=== PATIENT | male | born 1965 | race Caucasian/White ===

== ENCOUNTER → 2016-06-17 | Outpatient (CLI) | payer BC ==
[2016-06-17 16:28] LABS: ABSOLUTE BASOPHILS # (AUTO) 0.1 10^3/uL (0.0-0.2); ABSOLUTE EOSINOPHILS # (AUTO) 0.1 10^3/uL (0.0-0.6); ABSOLUTE MONOCYTES (AUTO) 0.9 10^3/uL (0.1-1.4); ABSOLUTE NEUT (AUTO) 4.5 10^3/uL (1.7-8.2); BASOPHILS % (AUTO) 0.9 % (0-2); EOSINOPHILS % (AUTO) 1.3 % (0-6); HEMATOCRIT 50.3 % (37.9-51.0); HEMOGLOBIN 16.4 g/dL (13.5-17.0); HGB HCT DIFFERENCE -1.1; LYMPHOCYTES % (AUTO) 34.8 % (13-45); MEAN CORPUSCULAR HEMOGLOBIN 26.6 pg (27.0-33.4); MEAN CORPUSCULAR HGB CONC 32.7 g/dL (32.0-36.0); MEAN CORPUSCULAR VOLUME 81 fl (80-97); MONOCYTES % (AUTO) 10.4 % (3-13); RED BLOOD COUNT 6.18 10^6/uL (4.35-5.55); RED CELL DISTRIBUTION WIDTH 16.1 % (11.5-14.0); SEGMENTED NEUTROPHILS % (AUTO) 52.6 % (42-78); WHITE BLOOD COUNT 8.5 10^3/uL (4.0-10.5)
== END ==
LOC: OD 15:31
PROVIDERS: ATTEND Urology
DX: E29.1 Testicular hypofunction (principal); N52.8 Other male erectile dysfunction; N52.9 Male erectile dysfunction, unspecified; N40.1 Benign prostatic hyperplasia with lower urinary tract symptoms
CPT/HCPCS: 36415; 85025

== ENCOUNTER → 2016-07-29 | Outpatient (CLI) | payer BC ==
[2016-07-29 10:49] LABS: ABSOLUTE BASOPHILS # (AUTO) 0.1 10^3/uL (0.0-0.2); ABSOLUTE EOSINOPHILS # (AUTO) 0.2 10^3/uL (0.0-0.6); ABSOLUTE LYMPHOCYTES (AUTO) 2.3 10^3/uL (0.5-4.7); ABSOLUTE MONOCYTES (AUTO) 0.8 10^3/uL (0.1-1.4); ABSOLUTE NEUT (AUTO) 5.7 10^3/uL (1.7-8.2); BASOPHILS % (AUTO) 0.9 % (0-2); EOSINOPHILS % (AUTO) 1.7 % (0-6); HEMOGLOBIN 16.3 g/dL (13.5-17.0); HGB HCT DIFFERENCE -0.1; LYMPHOCYTES % (AUTO) 25.5 % (13-45); MEAN CORPUSCULAR HEMOGLOBIN 27.1 pg (27.0-33.4); MEAN CORPUSCULAR HGB CONC 33.3 g/dL (32.0-36.0); MEAN CORPUSCULAR VOLUME 81 fl (80-97); MONOCYTES % (AUTO) 9.3 % (3-13); RED BLOOD COUNT 6.02 10^6/uL (4.35-5.55); RED CELL DISTRIBUTION WIDTH 15.7 % (11.5-14.0); SEGMENTED NEUTROPHILS % (AUTO) 62.6 % (42-78); WHITE BLOOD COUNT 9.1 10^3/uL (4.0-10.5)
[2016-07-29 11:12] LABS: ALANINE AMINOTRANSFERASE 39 U/L (21-72); ALBUMIN 4.3 g/dL (3.5-5.0); ALKALINE PHOSPHATASE 71 U/L (38-126); ANION GAP 15 (5-19); ASPARTATE AMINO TRANSFERASE 22 U/L (17-59); BILIRUBIN,DIRECT 0.3 mg/dL (0.0-0.4); BILIRUBIN,TOTAL 0.9 mg/dL (0.2-1.3); BLOOD UREA NITROGEN 16 mg/dL (7-20); CALCIUM 9.5 mg/dL (8.4-10.2); CARBON DIOXIDE 28 mmol/L (22-30); CHLORIDE 98 mmol/L (98-107); CREATININE RESULT 0.95 mg/dL (0.52-1.25); GLUCOSE 156 mg/dL (75-110); POTASSIUM 4.1 mmol/L (3.6-5.0); SODIUM 140.8 mmol/L (137-145); TOTAL PROTEIN 7.1 g/dL (6.3-8.2)
== END ==
LOC: OD 09:17
PROVIDERS: ATTEND Urology
DX: E13.9 Other specified diabetes mellitus without complications (principal); N52.8 Other male erectile dysfunction; N52.9 Male erectile dysfunction, unspecified; E29.1 Testicular hypofunction; N40.1 Benign prostatic hyperplasia with lower urinary tract symptoms; I10 Essential (primary) hypertension; D75.1 Secondary polycythemia; F43.12 Post-traumatic stress disorder, chronic
CPT/HCPCS: 36415; 80053; 83036; 85025

== ENCOUNTER → 2018-08-07 | Outpatient (CLI) | payer OTHER ==
--- NOTE | 2018-08-07 12:25 | RADIOLOGY REPORT (SQ) ---
EXAM DESCRIPTION: MRI LT UPPER JOINT WITHOUT COMPLETED DATE/TIME: 08/07/2018 10:31 am REASON FOR STUDY: UNSPECIFIED INJURY OF MUSCLE(S) AND TENDON(S) OF THE ROTATOR CUFF, LEFT (S4 S46.00 2S UNSP INJ MUSC/TEND THE ROTATOR CUFF OF L SHOULDER, COMPARISON: None. TECHNIQUE: Left shoulder images acquired and stored on PACS. Multiplanar imaging to include fat sens itive sequences such as T1, water sensitive sequences such as FST2/STIR, cartilage sensitive sequence s such as FSPD/gradient-echo sequences. LIMITATIONS: Motion artifact FINDINGS: BONE MARROW AND CORTEX: No worrisome bone lesions or marrow replacement. No occult fractur es. JOINT OR BURSAL EFFUSION: No significant fluid in the subacromial/subdeltoid bursa. Small left shoul naila joint effusion with fluid tracking along the subcoracoid recess GLENO-HUMERAL ARTICULATION: Normal alignment at the glenohumeral joint. High-grade chondromalacia of the bony glenoid and articular surface left humeral head. ACROMION AND AC JOINT: Type 2 acromion with bulky acromioclavicular joint bony spurring and synovial thickening with joint space fluid. This narrows the subacromial space on sagittal image 13. ROTATOR CUFF AND INTERVAL: There is high signal in the distal undersurface supraspinatus tendon from tendinopathy. High signal in the undersurface distal infraspinatus tendon from tendinopathy. No ful l-thickness tear. Subscapularis grossly intact. No rotator interval tear. No rotator interval thickening to suggest adhesive capsulitis. LABRUM AND BICEPS LABRAL COMPLEX: Intra-articular biceps tendon is high signal. Superior labrum is diffusely abnormal from diffuse degeneration. REMAINDER OF LABRUM AND IGHL : No gross tear or paralabral cyst formation. Labral evaluation is less than optimal without joint distention. No thickening of IGHL to suggest adhesive capsulitis. PERIARTICULAR AND ADJACENT SOFT TISSUES: No masses or abnormal nodes. OTHER: No other significant finding. IMPRESSION: Rotator cuff tendinopathy along the supra and infraspinatus tendons. Glenohumeral joint osteoarthritis TECHNICAL DOCUMENTATION: JOB ID: [id number] [employer]- All Rights Reserved Reading location - IP/workstation name: [email or web address]
== END ==
LOC: RAD 09:36
PROVIDERS: ATTEND Physician Assistant
DX: S46.002S Unspecified injury of muscle(s) and tendon(s) of the rotator cuff of left shoulder, sequela (principal); X58.XXXS Exposure to other specified factors, sequela

== ENCOUNTER → 2018-10-22 | Outpatient (CLI) | payer OTHER, BC ==
--- NOTE | 2018-10-22 13:18 | RADIOLOGY REPORT (SQ) ---
EXAM DESCRIPTION: CHEST PA/LATERAL COMPLETED DATE/TIME: 10/22/2018 1:05 pm REASON FOR STUDY: COUGH COMPARISON: 07/19/2012 EXAM PARAMETERS: NUMBER OF VIEWS: two views TECHNIQUE: Digital Frontal and Lateral radiographic views of the chest acquired. RADIATION DOSE: NA LIMITATIONS: none FINDINGS: LUNGS AND PLEURA: Calcified granuloma in the right lung is stable. No infiltrate, effusio n, or mass. MEDIASTINUM AND HILAR STRUCTURES: No masses or contour abnormalities. HEART AND VASCULAR STRUCTURES: Heart normal size. No evidence for failure. BONES: No acute findings. HARDWARE: None in the chest. OTHER: No other significant finding. IMPRESSION: NO SIGNIFICANT RADIOGRAPHIC FINDING IN THE CHEST. TECHNICAL DOCUMENTATION: JOB ID: [id number] [employer]- All Rights Reserved Reading location - IP/workstation name: [email or web address]
[2018-10-22 13:27] LABS: HEMATOCRIT 46.5 % (37.9-51.0); HEMOGLOBIN 15.5 g/dL (13.5-17.0); MEAN CORPUSCULAR HEMOGLOBIN 30.1 pg (27.0-33.4); MEAN CORPUSCULAR HGB CONC 33.3 g/dL (32.0-36.0); MEAN CORPUSCULAR VOLUME 90 fl (80-97); PLATELET COUNT 341 10^3/uL (150-450); RED BLOOD COUNT 5.14 10^6/uL (4.35-5.55); RED CELL DISTRIBUTION WIDTH 14.2 % (11.5-14.0)
[2018-10-22 13:50] LABS: ANION GAP 11 (5-19); BLOOD UREA NITROGEN 25 mg/dL (7-20); CALCIUM 9.7 mg/dL (8.4-10.2); CARBON DIOXIDE 29 mmol/L (22-30); CHLORIDE 99 mmol/L (98-107); GLUCOSE 221 mg/dL (75-110); POTASSIUM 4.2 mmol/L (3.6-5.0); SODIUM 138.5 mmol/L (137-145)
--- NOTE | 2018-10-22 19:34 | EKG REPORT ---
SEVERITY:- ABNORMAL ECG - SINUS RHYTHM NONSPECIFIC T ABNORMALITIES, LATERAL LEADS : Confirmed by: Alexia Spangler MD 22-Oct-2018 19:33:48
== END ==
LOC: OD 12:30
PROVIDERS: ATTEND Surgery
DX: Z01.818 Encounter for other preprocedural examination (principal); K60.3 Anal fistula; K58.9 Irritable bowel syndrome, unspecified; E11.9 Type 2 diabetes mellitus without complications; I10 Essential (primary) hypertension; F43.10 Post-traumatic stress disorder, unspecified; G47.30 Sleep apnea, unspecified; E66.9 Obesity, unspecified
CPT/HCPCS: 36415; 71046; 80048; 85027; 93005; 93010

== ENCOUNTER 2019-06-09 22:13 | Emergency (ER) | payer MEDICARE, BC ==
--- NOTE | 2019-06-09 23:45 | ER Document Report ---
ED Medical Screen (RME) - General Chief Complaint: Ankle Injury Stated Complaint: LEFT ANKLE PAIN Time Seen by Provider: 06/09/19 23:41 Primary Care Provider: INDIRA,JESSICA [Primary Care Provider] - Follow up as needed Mode of Arrival: Ambulatory Information source: Patient Notes: Patient states that he stepped in a hole around April 21 of last year and ever since then has had persistent pain to the left lateral ankle. Patient states the pain has worsened over the past few days which is prompted his visit here today. Patient denies any new injury. I have greeted and performed a rapid initial assessment of this patient. A comprehensive ED assessment and evaluation of the patient, analysis of test results and completion of the medical decision making process will be conducted by additional ED providers. TRAVEL OUTSIDE OF THE [place] IN LAST 30 DAYS: No - Related Data Allergies/Adverse Reactions: No Known Allergies Allergy (Verified 06/09/19 23:41) Past Medical History - Past Medical History Cardiac Medical History: Reports: Hx Hypercholesterolemia, Hx Hypertension Denies: Hx Coronary Artery Disease, Hx Heart Attack Pulmonary Medical History: Denies: Hx Asthma, Hx Bronchitis, Hx COPD, Hx Pneumonia Neurological Medical History: Reports: Hx Migraine. Denies: Hx Cerebrovascular Accident, Hx Seizures Endocrine Medical History: Reports: Hx Diabetes Mellitus Type 2 Renal/ Medical History: Denies: Hx End Stage Renal Disease, Hx Renal Insufficiency Malignancy Medical History: Denies Hx Prostate Cancer, Denies Hx Renal (Kidney) Cancer GI Medical History: Denies: Hx Gastritis, Hx Gastroesophageal Reflux Disease Musculoskeltal Medical History: Denies Hx Arthritis Psychiatric Medical History: Reports: Hx Depression - ptsd, anxiety Past Surgical History: Reports: Hx Orthopedic Surgery - Shoulder, wrist, knee - Immunizations Immunizations up to date: Yes Hx Diphtheria, Pertussis, Tetanus Vaccination: Yes Physical Exam - Vital signs Vitals: Temp Pulse Resp BP Pulse Ox 97.7 F 102 H 18 184/93 H 98 06/09/19 22:56 06/09/19 22:56 06/09/19 22:56 06/09/19 22:56 06/09/19 22:56 - Extremities General lower extremity: Tender - Left lateral ankle tenderness with edema Course - Vital Signs Vital signs: Temp Pulse Resp BP Pulse Ox 97.7 F 102 H 18 184/93 H 98 06/09/19 22:56 06/09/19 22:56 06/09/19 22:56 06/09/19 22:56 06/09/19 22:56 Doctor's Discharge - Discharge Referrals: [facility] [Primary [facility]] - Follow up as needed
--- NOTE | 2019-06-10 02:25 | RADIOLOGY REPORT (SQ) ---
CLINICAL HISTORY: L ankle pain, stepped in hole 04/21/19 COMPARISON: None. TECHNIQUE: XR ANKLE 3 OR MORE VIEWS 06/09/2019 11:44 PM HANDS ASSEMBLER FINDINGS: There is no fracture. Joint spaces are preserved. There is mostly lateral soft tissue swelling IMPRESSION: No acute osseous findings.
[2019-06-10 02:55] VITALS: BP 130/72
--- NOTE | 2019-06-10 02:56 | ER Document Report ---
HPI - HPI Time Seen by Provider: 06/09/19 23:41 Pain Level: 3 Context: Patient is a 53-year-old male that comes to the emergency department for chief complaint of injury to the left ankle. He states he stepped in a hole on April 21 and since then he has had intermittent swelling and intermittent pain. He denies reinjury but he admits that he wears boots constantly and stays on his ankle. Patient is also obese. He is not on a blood thinner. He denies fever, he denies any other complaints. - MUSCULOSKELETAL Musculoskeletal: REPORTS: Extremity pain - left ankle - DERM Skin Color: Normal Past Medical History - General Information source: Patient - Social History Smoking Status: Never Smoker Frequency of alcohol use: None Drug Abuse: None Lives with: Family Family History: Reviewed & Not Pertinent Patient has suicidal ideation: No Patient has homicidal ideation: No - Past Medical History Cardiac Medical History: Reports: Hx Hypercholesterolemia, Hx Hypertension Denies: Hx Coronary Artery Disease, Hx Heart Attack Pulmonary Medical History: Denies: Hx Asthma, Hx Bronchitis, Hx COPD, Hx Pneumonia Neurological Medical History: Reports: Hx Migraine. Denies: Hx Cerebrovascular Accident, Hx Seizures Endocrine Medical History: Reports: Hx Diabetes Mellitus Type 2 Renal/ Medical History: Denies: Hx End Stage Renal Disease, Hx Renal Insufficiency Malignancy Medical History: Denies Hx Prostate Cancer, Denies Hx Renal (Kidney) Cancer GI Medical History: Denies: Hx Gastritis, Hx Gastroesophageal Reflux Disease Musculoskeletal Medical History: Denies Hx Arthritis Psychiatric Medical History: Reports: Hx Depression - ptsd, anxiety Past Surgical History: Reports: Hx Orthopedic Surgery - Shoulder, wrist, knee - Immunizations Immunizations up to date: Yes Hx Diphtheria, Pertussis, Tetanus Vaccination: Yes Vertical Provider Document - CONSTITUTIONAL General Appearance: WD/WN, No Apparent Distress, Obese - INFECTION CONTROL TRAVEL OUTSIDE OF THE [place] IN LAST 30 DAYS: No - HEENT HEENT: Atraumatic, Normocephalic - NECK Neck: Normal Inspection - RESPIRATORY Respiratory: Breath Sounds Normal, No Respiratory Distress - CARDIOVASCULAR Cardiovascular: Regular Rate, Regular Rhythm - GI/ABDOMEN Gastrointestinal: Abdomen Soft, Abdomen Non-Tender. negative: Abdomen Tender - BACK Back: Normal Inspection - MUSCULOSKELETAL/EXTREMETIES Musculoskeletal/Extremeties: MAEW, FROM, Tender - There is tenderness and some soft tissue swelling to the left lateral ankle, range of motion of ankle intact, foot, leg, knee, hip exam unremarkable. Normal capillary refill and sensation. No wounds. - NEURO Level of Consciousness: Awake, Alert, Appropriate Motor/Sensory: No Motor Deficit, No Sensory Deficit - DERM Integumentary: Warm, Dry, No Rash Course - Re-evaluation Re-evalutation: Patient's exam shows some soft tissue swelling but no concerning erythema, severe swelling, severe tenderness, neurovascular deficits. X-ray negative except for soft tissue swelling. Patient placed in immobilization, discussed care of the reinjured sprain, follow-up, return precautions. Patient states understanding and agreement. - Vital Signs Vital signs: Temp Pulse Resp BP Pulse Ox 97.7 F 102 H 18 184/93 H 98 06/09/19 22:56 06/09/19 22:56 06/09/19 22:56 06/09/19 22:56 06/09/19 22:56 Procedures - Immobilization Left ankle Pre-Proc Neuro Vasc Exam: Normal Immobilizer type: Andres wrap, Ankle stirrup Performed by: PCT Post-Proc Neuro Vasc Exam: Normal Alignment checked and good: Yes Discharge - Discharge Clinical Impression: Left ankle swelling Left ankle pain Qualifiers: Chronicity: acute Qualified Code(s): M25.572 - Pain in left ankle and joints of left foot Condition: Stable Disposition: HOME, SELF-CARE Additional Instructions: Your evaluation and x-ray showed soft tissue swelling but there is no fracture or concerning findings otherwise. This appears to be injury of the ATF ligament, I recommend the ankle stirrup and wrap, crutches for the next 2 to 3 days, elevation, anti-inflammatory such as the one prescribed, and ice to the area 3-4 times a day for 10 to 15 minutes. Swelling should resolve and when pain and swelling resolve resume normal activity. If symptoms continue follow- up with orthopedics for additional management. Return for any concerning symptoms including severe swelling or pain. Prescriptions: Naproxen 500 mg PO BID PRN #20 tablet PRN Reason: Referrals: [facility] [Primary Care Provider] - Follow up as needed
== END 2019-06-10 03:15 | disposition home or self-care (01) ==
LOC: ER 22:13
DX: M25.572 Pain in left ankle and joints of left foot (principal); M79.89 Other specified soft tissue disorders; W17.2XXA Fall into hole, initial encounter; E66.9 Obesity, unspecified; I10 Essential (primary) hypertension; E11.9 Type 2 diabetes mellitus without complications